=== PATIENT | male | born 1935 | race Caucasian/White ===

== ENCOUNTER 2020-12-29 09:12 | Inpatient (IN) | payer MEDICARE ==
[2020-12-29] MEDS ORDERED: HYDROmorphone 0.5 MG/0.5 ML SYRINGE IVP STA (09:40)
[2020-12-29] MEDS ORDERED: ONDANSETRON 4 MG/2 ML VIAL IVP STA (09:40)
--- NOTE | 2020-12-29 09:48 | ED ---
General Adult HPI - General Chief complaint: Shortness of Breath Stated complaint: SOB,ALtered mental status COVID + Time Seen by Provider: 12/29/20 09:15 Source: patient, EMS, RN notes reviewed Mode of arrival: EMS Limitations: altered mental status - History of Present Illness Initial comments: This an 85-year-old male presents emergency from via EMS from [facility] for shortness of breath. Patient reportedly is Covid positive.. Limited informati on is provided from jail staff. Patient reportedly was in a paternal: Recently. Patient found to be hypoxic the facility. Patient states it hurts all over states he did fall denies any head injury. Patient has no obvious new injuries. Patient denies any abdominal complaints no other pertinent information is provided from patient. - Related Data Home Medications Medication Instructions Recorded Confirmed Acetaminophen [Tylenol] 650 mg PO Q4H PRN 12/29/20 12/29/20 Albuterol Nebulized [Ventolin 2.5 mg INHALATION RT-Q8H PRN 12/29/20 12/29/20 Nebulized] Apixaban [Eliquis] 2.5 mg PO BID 12/29/20 12/29/20 Ascorbic Acid [Vitamin C] 500 mg PO DAILY 12/29/20 12/29/20 Aspirin [Children's Aspirin] 81 mg PO DAILY 12/29/20 12/29/20 Benzocaine/Menthol [Cepacol Sore 1 lozenge BUCCAL DAILY PRN 12/29/20 12/29/20 Throat Lozenge] Cholecalciferol [Vitamin D3 (25 25 mcg PO DAILY 12/29/20 12/29/20 Mcg = 1000 Iu)] Docusate [Colace] 100 mg PO DAILY PRN 12/29/20 12/29/20 Fluticasone Furoate [Arnuity 1 puff INHALATION RT-DAILY 12/29/20 12/29/20 Ellipta] Fluticasone Nasal [place] [Flonase 1 spray EA NOSTRIL DAILY 12/29/20 12/29/20 Nasal [place]] Fluticasone Propionate [Flovent 2 puff INHALATION RT-BID 12/29/20 12/29/20 Hfa 220 mcg] HYDROcodone/APAP 5-325MG [[place] 1 tab PO Q6H PRN 12/29/20 12/29/20 5-325] Insulin Aspart See Protocol SQ ACHS 12/29/20 12/29/20 Insulin Detemir [Levemir Flextouch] 10 units SQ DAILY 12/29/20 12/29/20 Metoprolol Tartrate [Lopressor] 25 mg PO BID 12/29/20 12/29/20 Omeprazole 20 mg PO DAILY 12/29/20 12/29/20 Tamsulosin HCl [Flomax] 0.4 mg PO HS 12/29/20 12/29/20 Tiotropium 2.5 Mcg/Puff [Spiriva 2 puff INHALATION RT-DAILY 12/29/20 12/29/20 Respimat 2.5 Mcg] polyethylene glycoL 3350 [Miralax] 17 gm PO DAILY PRN 12/29/20 12/29/20 predniSONE [Deltasone] 20 mg PO DAILY 12/29/20 12/29/20 traMADol HCL 50 mg PO BID PRN 12/29/20 12/29/20 traZODone HCL 100 mg PO HS 12/29/20 12/29/20 Allergies Allergy/AdvReac Type Severity Reaction Status Date / Time rosiglitazone [From [facility]] Allergy Unknown Verified 12/29/20 10:59 Review of Systems ROS Statement: Those systems with pertinent positive or pertinent negative responses have been documented in the HPI. ROS Other: All systems not noted in ROS Statement are negative. Past Medical History Past Medical History: Atrial Fibrillation, Hypertension History of Any Multi-Drug Resistant Organisms: Unobtainable Past Surgical History: Unable to Obtain Past Psychological History: Unable to Obtain Smoking Status: Unknown if ever smoked Past Alcohol Use History: Unable to Obtain Past Drug Use History: Unable to Obtain General Exam Limitations: altered mental status General appearance: alert, in no apparent distress Head exam: Present: atraumatic, normocephalic, normal inspection Eye exam: Present: normal appearance, PERRL, EOMI. Absent: scleral icterus, conjunctival injection, periorbital swelling Neck exam: Present: normal inspection. Absent: tenderness, meningismus, ly mphadenopathy Respiratory exam: Present: wheezes, decreased breath sounds. Absent: normal lung sounds bilaterally, respiratory distress, rales, rhonchi, stridor Cardiovascular Exam: Present: normal rhythm, tachycardia, normal heart sounds. Absent: systolic murmur, diastolic murmur, rubs, gallop, clicks GI/Abdominal exam: Present: soft, normal bowel sounds. Absent: distended, tenderness, guarding, rebound, rigid Neurological exam: Present: alert. Absent: oriented X3 Skin exam: Present: warm, dry, intact, normal color. Absent: rash Course Vital Signs 12/29/20 12/29/20 12/29/20 09:16 10:03 11:22 Temperature 98.2 F Pulse Rate 103 H 125 H 111 H Respiratory 26 H 25 H 22 Rate Blood Pressure 99/76 154/87 100/83 O2 Sat by Pulse 93 L 94 L 95 Oximetry 12/29/20 12:21 Temperature Pulse Rate 92 Respiratory 20 Rate Blood Pressure 160/86 O2 Sat by Pulse 95 Oximetry Medical Decision Making - Medical Decision Making 85-year-old male presented from for increasing confusion, hypoxia, not feeling well.nurse contacts family stated that he just recently was discharged from [facility] patient's positive or coded. Patient does show moderate respiratory distress, hypoxia. Patient does have what appears to be acute kidney injury, elevated troponin but has no current chest pain. Patient is on Eliquis will be continued on Eliquis. CT brain and C-spine unremarkable x-rays show evidence of pneumonia. Ur is no clear evidence of infection for patient's lactic acidosis. - Lab Data Result diagrams: 12/29/20 09:50 12/29/20 10:02 Lab Results 12/29/20 12/29/20 12/29/20 Range/Units 09:50 10:02 10:02 WBC 16.8 H (3.8-10.6) k/uL RBC 4.92 (4.30-5.90) m/uL Hgb 13.7 (13.0-17.5) gm/dL Hct 40.7 (39.0-53.0) % MCV 82.7 (80.0-100.0) fL MCH 27.8 (25.0-35.0) pg MCHC 33.6 (31.0-37.0) g/dL RDW 14.9 (11.5-15.5) % Plt Count 261 (150-450) k/uL MPV 8.3 Neutrophils % 90 % Lymphocytes % 2 % Monocytes % 5 % Eosinophils % 2 % Basophils % 0 % Neutrophils # 15.1 H (1.3-7.7) k/uL Lymphocytes # 0.4 L (1.0-4.8) k/uL Monocytes # 0.8 (0-1.0) k/uL Eosinophils # 0.4 (0-0.7) k/uL Basophils # 0.1 (0-0.2) k/uL Sodium 137 (137-145) mmol/L Potassium 4.8 (3.5-5.1) mmol/L Chloride 106 (98-107) mmol/L Carbon Dioxide 19 L (22-30) mmol/L Anion Gap 12 mmol/L BUN 42 H (9-20) mg/dL Creatinine 1.80 H (0.66-1.25) mg/dL Est GFR (CKD-EPI)AfAm 39 (>60 ml/min/1.73 sqM) Est GFR (CKD-EPI)NonAf 34 (>60 ml/min/1.73 sqM) Glucose 249 H (74-99) mg/dL Lactic Ac Sepsis Rflx Plasma Lactic Acid Louis 5.2 H* (0.7-2.0) mmol/L Calcium 9.1 (8.4-10.2) mg/dL Magnesium 1.9 (1.6-2.3) mg/dL Total Bilirubin 1.0 (0.2-1.3) mg/dL AST 101 H (17-59) U/L ALT 65 H (4-49) U/L Alkaline Phosphatase 173 H (38-126) U/L Troponin I (0.000-0.034) ng/mL C-Reactive Protein 44.3 H (<10.0) mg/L Total Protein 6.8 (6.3-8.2) g/dL Albumin 3.3 L (3.5-5.0) g/dL Lipase 73 (23-300) U/L Urine Color Urine Appearance (Clear) Urine pH (5.0-8.0) Ur Specific [place] (1.001-1.035) Urine Protein (Negative) Urine Glucose (UA) (Negative) Urine Ketones (Negative) Urine Blood (Negative) Urine Nitrite (Negative) Urine Bilirubin (Negative) Urine Urobilinogen (<2.0) mg/dL Ur Leukocyte Esterase (Negative) Urine RBC (0-5) /hpf Urine WBC (0-5) /hpf Urine WBC Clumps (None) /hpf Amorphous Sediment (None) /hpf Hyaline Casts (0-2) /lpf Granular Casts (0) /lpf Urine Mucus (None) /hpf 12/29/20 12/29/20 12/29/20 Range/Units 10:02 10:28 11:39 WBC (3.8-10.6) k/uL RBC (4.30-5.90) m/uL Hgb (13.0-17.5) gm/dL Hct (39.0-53.0) % MCV (80.0-100.0) fL MCH (25.0-35.0) pg MCHC (31.0-37.0) g/dL RDW (11.5-15.5) % Plt Count (150-450) k/uL MPV Neutrophils % % Lymphocytes % % Monocytes % % Eosinophils % % Basophils % % Neutrophils # (1.3-7.7) k/uL Lymphocytes # (1.0-4.8) k/uL Monocytes # (0-1.0) k/uL Eosinophils # (0-0.7) k/uL Basophils # (0-0.2) k/uL Sodium (137-145) mmol/L Potassium (3.5-5.1) mmol/L Chloride (98-107) mmol/L Carbon Dioxide (22-30) mmol/L Anion Gap mmol/L BUN (9-20) mg/dL Creatinine (0.66-1.25) mg/dL Est GFR (CKD-EPI)AfAm (>60 ml/min/1.73 sqM) Est GFR (CKD-EPI)NonAf (>60 ml/min/1.73 sqM) Glucose (74-99) mg/dL Lactic Ac Sepsis Rflx Y Plasma Lactic Acid Louis (0.7-2.0) mmol/L Calcium (8.4-10.2) mg/dL Magnesium (1.6-2.3) mg/dL Total Bilirubin (0.2-1.3) mg/dL AST (17-59) U/L ALT (4-49) U/L Alkaline Phosphatase (38-126) U/L Troponin I 0.382 H* (0.000-0.034) ng/mL C-Reactive Protein (<10.0) mg/L Total Protein (6.3-8.2) g/dL Albumin (3.5-5.0) g/dL Lipase (23-300) U/L Urine Color Yellow Urine Appearance Cloudy (Clear) Urine pH 6.0 (5.0-8.0) Ur Specific [place] 1.016 (1.001-1.035) Urine Protein 3+ H (Negative) Urine Glucose (UA) 1+ H (Negative) Urine Ketones Negative (Negative) Urine Blood Moderate H (Negative) Urine Nitrite Negative (Negative) Urine Bilirubin Negative (Negative) Urine Urobilinogen <2.0 (<2.0) mg/dL Ur Leukocyte Esterase Trace H (Negative) Urine RBC <1 (0-5) /hpf Urine WBC 12 H (0-5) /hpf Urine WBC Clumps Few H (None) /hpf Amorphous Sediment Moderate H (None) /hpf Hyaline Casts 4 H (0-2) /lpf Granular Casts 3 (0) /lpf Urine Mucus Rare H (None) /hpf Disposition Clinical Impression: Pneumonia due to COVID-19 virus, Hypoxia, Elevated troponin, PAULO (acute kidney injury), Lactic acidosis Disposition: ADMITTED IP TO THIS [facility] Condition: Serious Referrals: None,Stated [REFERRING] - 1-2 days
[2020-12-29 10:06] LABS: Basophils # (A) 0.1 k/uL (0-0.2); Basophils % (A) 0 %; Eosinophils # (A) 0.4 k/uL (0-0.7); Eosinophils % (A) 2 %; HCT 40.7 % (39.0-53.0); HGB 13.7 gm/dL (13.0-17.5); Lymphocytes # (A) 0.4 k/uL (1.0-4.8); Lymphocytes % (A) 2 %; MCH 27.8 pg (25.0-35.0); MCHC 33.6 g/dL (31.0-37.0); MCV 82.7 fL (80.0-100.0); Mean Platelet Volume 8.3; Monocytes # (A) 0.8 k/uL (0-1.0); Monocytes % (A) 5 %; Neutrophils # (A) 15.1 k/uL (1.3-7.7); Neutrophils % (A) 90 %; Platelet Count 261 k/uL (150-450); RBC 4.92 m/uL (4.30-5.90); RDW 14.9 % (11.5-15.5); WBC 16.8 k/uL (3.8-10.6)
[2020-12-29 10:19] LABS: Albumin 3.3 g/dL (3.5-5.0); C Reactive Protein 44.3 mg/L (<10.0); Calcium 9.1 mg/dL (8.4-10.2); Magnesium 1.9 mg/dL (1.6-2.3); Potassium 4.8 mmol/L (3.5-5.1); Total Protein 6.8 g/dL (6.3-8.2)
[2020-12-29] MEDS ORDERED: SODIUM CHLORIDE 0.9% 1,000 ML IV ONE (10:36)
[2020-12-29] MEDS ORDERED: DILTIAZEM DRIP BOLUS FROM BAG 1 MG SOLN IV ONE (10:37)
--- NOTE | 2020-12-29 10:49 | XR ---
EXAMINATION TYPE: XR chest 1V DATE OF EXAM: 12/29/2020 COMPARISON: None HISTORY: Shortness of breath and fall TECHNIQUE: Single frontal view of the chest is obtained. FINDINGS: There are scattered partially consolidative opacities in both lungs particularly in the mi d and lower lung zones. There is no pneumothorax. There is no definite pleural effusion. The heart and pulmonary vasculature are normal. The osseous structures are grossly intact IMPRESSION: Acute airspace opacities bilaterally consistent with acute pulmonic process
--- NOTE | 2020-12-29 10:50 | XR ---
AP pelvis. HISTORY: Fall. COMPARISON: None. TECHNIQUE: Single AP view the pelvis is obtained. FINDINGS: There is no fracture or focal intraosseous abnormality. There is mild hip degeneration degeneration l ower lumbar spine. There are no suspicious calcifications within the soft tissues or graft impression : IMPRESSION: No acute trauma to the pelvis or hips.
--- NOTE | 2020-12-29 10:57 | CT ---
EXAMINATION TYPE: CT brain jolene colindres DATE OF EXAM: 12/29/2020 COMPARISON: None HISTORY: Altered mental status; COVID positive CT DLP: 2074.4 mGycm Automated exposure control for dose reduction was used. TECHNIQUE: CT scan of the head and cervical spine are performed without contrast. FINDINGS CT brain: The ventricles, basal cisterns and sulci over the convexities are moderately prominent consistent wit h generalized atrophy and consistent with the patient's age. There is no acute intra or extra-axial hemorrhage. There is no mass effect or shift of midline structures. The posterior fossa is grossly normal. The intraorbital contents appear normal and symmetric. Visualized paranasal sinuses are well aerated. The calvarium is intact. Cervical spine: Craniovertebral junction relationships and prevertebral soft tissues are normal. The cervical vertebr al segments are normal in height and alignment and there is no fracture or subluxation. The there is diffuse anterior hyperostosis throughout the cervical region. There is moderate degenerative disc disease with moderate disc space narrowing throughout the cervica l region. There is degeneration of the facet joints as well. There is probable significant bony encroachment of the cervical canal at the C4-5 level. IMPRESSION: 1. Generalized atrophy within the brain consistent with the patient's age. No acute bleed or mass eff ect. 2. 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 Th ere is no acute trauma in the cervical spine.
[2020-12-29] MEDS: DILTIAZEM 125 MG in SODIUM CHLORIDE 0.9% 100 ML IV SCH (11:20)
[2020-12-29 12:15] LABS: Amorphous Sediment,Urine Moderate /hpf; Appearance,Urine Cloudy (Clear); Bilirubin,Urine Negative (Negative); Blood,Urine Moderate (Negative); Color,Urine Yellow; Glucose,Urine (UA) 1+ (Negative); Granular Casts,Urine 3 /lpf (0); Hyaline Casts,Urine 4 /lpf (0-2); Ketones,Urine Negative (Negative); Leukocyte Esterase,Urine Trace (Negative); Mucus,Urine Rare /hpf; Nitrite,Urine Negative (Negative); Protein,Urine 3+ (Negative); RBC,Urine <1 /hpf (0-5); Specific Gravity,Urine 1.016 (1.001-1.035); Urobilinogen,Urine <2.0 mg/dL (<2.0); WBC,Urine 12 /hpf (0-5)
[2020-12-29] MEDS ORDERED: LORazepam 2 MG/ML INJ IV STA (12:19)
[2020-12-29] MEDS: SODIUM CHLORIDE 0.9% 1,000 ML IV SCH (12:21)
[2020-12-29] MEDS ORDERED: ONDANSETRON 4 MG/2 ML VIAL IVP PRN (12:35)
[2020-12-29] MEDS ORDERED: ACETAMINOPHEN TAB 325 MG TAB PO PRN (12:35)
[2020-12-29] MEDS ORDERED: NALOXONE 0.4 MG/ML 1 ML VIAL IV PRN (12:35)
[2020-12-29] MEDS ORDERED: MORPHINE SULFATE 4 MG/ML SYRINGE IVP PRN (13:52)
[2020-12-29] MEDS ORDERED: HYDROcodone/APAP 5-325MG 1 EACH TAB PO PRN (13:53)
[2020-12-29] MEDS ORDERED: LORazepam 2 MG/ML INJ IV PRN (13:54)
[2020-12-29] MEDS ORDERED: HEPARIN SODIUM 1,000 UN/ML (10ML VL) IV PRN (14:44)
[2020-12-29] MEDS: HEPARIN SOD,PORK IN 0.45% NACL 25,000 UNIT in 0.45% NACL 1 250ML.BAG IV SCH (15:11)
[2020-12-29] MEDS ORDERED: HALOPERIDOL LACTATE 5 MG/ML 1 ML VIAL IVP PRN (17:09)
[2020-12-29] MEDS ORDERED: dexAMETHasone 2 MG TAB PO SCH (17:15)
--- NOTE | 2020-12-29 17:19 | P.HPIM ---
History of Present Illness 85-year-old the pleasant male was sent in from a large because of shortness of breath found to have. patient is unable to provide much of history to me patient is presently on 4 L of oxygen. Patient the mental status at baseline is much better than what he is now patient is oriented 1 but didn't provide me any history at all patient apparently told the ER physician news production assistant that the he has body aches all over. Patient is found to have covid 19. Patient also has elevated troponins were elevated with the some EKG changes in the inferior leads and patient appears to be in atrial fibrillation as well patient was started on IV heparin, Cardizem, cardiology was consulted. Patient initial troponin was 0.3 to second one is 1.24 patient present creatinine is 1.80 patient does have leukocytosis. I do not have any baseline creatinine available. Patient had multiple imaging studies unsure whether he had a fall patient had a cervical and head CT which showed significant atrophy of the brain along with degenerative changes and cervical stenosis at C4-C5 level without any acute trauma Review of Systems Unable to obtain Past Medical History Past Medical History: Atrial Fibrillation, Hypertension Additional Past Medical History / Comment(s): liver cancer years ago. History of Any Multi-Drug Resistant Organisms: Unobtainable Past Surgical History: Unable to Obtain Additional Past Surgical History / Comment(s): portion of liver removed Past Psychological History: Unable to Obtain Smoking Status: Unknown if ever smoked Past Alcohol Use History: Unable to Obtain Past Drug Use History: Unable to Obtain Medications and Allergies Home Medications Medication Instructions Recorded Confirmed Type Acetaminophen [Tylenol] 650 mg PO Q4H PRN 12/29/20 12/29/20 History Albuterol Nebulized [Ventolin 2.5 mg INHALATION RT-Q8H PRN 12/29/20 12/29/20 History Nebulized] Apixaban [Eliquis] 2.5 mg PO BID 12/29/20 12/29/20 History Ascorbic Acid [Vitamin C] 500 mg PO DAILY 12/29/20 12/29/20 History Aspirin [Children's Aspirin] 81 mg PO DAILY 12/29/20 12/29/20 History Benzocaine/Menthol [Cepacol Sore 1 lozenge BUCCAL DAILY PRN 12/29/20 12/29/20 History Throat Lozenge] Cholecalciferol [Vitamin D3 (25 25 mcg PO DAILY 12/29/20 12/29/20 History Mcg = 1000 Iu)] Docusate [Colace] 100 mg PO DAILY PRN 12/29/20 12/29/20 History Fluticasone Furoate [Arnuity 1 puff INHALATION RT-DAILY 12/29/20 12/29/20 History Ellipta] Fluticasone Nasal [place] [Flonase 1 spray EA NOSTRIL DAILY 12/29/20 12/29/20 History Nasal [place]] Fluticasone Propionate [Flovent 2 puff INHALATION RT-BID 12/29/20 12/29/20 History Hfa 220 mcg] HYDROcodone/APAP 5-325MG [[place] 1 tab PO Q6H PRN 12/29/20 12/29/20 History 5-325] Insulin Aspart See Protocol SQ ACHS 12/29/20 12/29/20 History Insulin Detemir [Levemir Flextouch] 10 units SQ DAILY 12/29/20 12/29/20 History Metoprolol Tartrate [Lopressor] 25 mg PO BID 12/29/20 12/29/20 History Omeprazole 20 mg PO DAILY 12/29/20 12/29/20 History Tamsulosin HCl [Flomax] 0.4 mg PO HS 12/29/20 12/29/20 History Tiotropium 2.5 Mcg/Puff [Spiriva 2 puff INHALATION RT-DAILY 12/29/20 12/29/20 History Respimat 2.5 Mcg] polyethylene glycoL 3350 [Miralax] 17 gm PO DAILY PRN 12/29/20 12/29/20 History predniSONE [Deltasone] 20 mg PO DAILY 12/29/20 12/29/20 History traMADol HCL 50 mg PO BID PRN 12/29/20 12/29/20 History traZODone HCL 100 mg PO HS 12/29/20 12/29/20 History Allergies Allergy/AdvReac Type Severity Reaction Status Date / Time rosiglitazone [From [facility]] Allergy Unknown Verified 12/29/20 10:59 Physical Exam Vitals: Vital Signs Temp Pulse Resp BP Pulse Ox 12/29/20 16:54 93 22 147/76 94 L 12/29/20 15:00 87 12/29/20 13:28 102 H 24 143/60 93 L 12/29/20 13:08 96 12/29/20 12:21 92 20 160/86 95 12/29/20 11:22 111 H 22 100/83 95 12/29/20 10:03 125 H 25 H 154/87 94 L 12/29/20 09:16 98.2 F 103 H 26 H 99/76 93 L Intake and Output 12/29/20 12/29/20 12/29/20 06:59 14:59 22:59 Other: Weight 86.183 kg PHYSICAL EXAMINATION: GENERAL: The patient is drowsy in respiratory distress and able to provide much of the history, not in any acute distress. Well developed, well nourished. HEENT: Pupils are round and equally reacting to light. EOMI. No scleral icterus. No conjunctival pallor. Normocephalic, atraumatic. No pharyngeal erythema. No thyromegaly. CARDIOVASCULAR: S1 and S2 present. No murmurs, rubs, or gallops. PULMONARY: Diminished bilaterally limited exam as patient doesn't follow commands ABDOMEN: Soft, nontender, nondistended, normoactive bowel sounds. No palpable organomegaly. MUSCULOSKELETAL: No joint swelling or deformity. EXTREMITIES: No cyanosis, clubbing, or pedal edema. NEUROLOGICAL: Unable to assess SKIN: No rashes. Results CBC & Chem 7: 12/29/20 09:50 12/29/20 10:02 Labs: Abnormal Lab Results - Last 24 Hours (Table) 12/29/20 12/29/20 12/29/20 Range/Units 09:50 10:02 10:02 WBC 16.8 H (3.8-10.6) k/uL Neutrophils # 15.1 H (1.3-7.7) k/uL Lymphocytes # 0.4 L (1.0-4.8) k/uL Carbon Dioxide 19 L (22-30) mmol/L BUN 42 H (9-20) mg/dL Creatinine 1.80 H (0.66-1.25) mg/dL Glucose 249 H (74-99) mg/dL Plasma Lactic Acid Louis 5.2 H* (0.7-2.0) mmol/L AST 101 H (17-59) U/L ALT 65 H (4-49) U/L Alkaline Phosphatase 173 H (38-126) U/L Troponin I (0.000-0.034) ng/mL C-Reactive Protein 44.3 H (<10.0) mg/L Albumin 3.3 L (3.5-5.0) g/dL Urine Protein (Negative) Urine Glucose (UA) (Negative) Urine Blood (Negative) Ur Leukocyte Esterase (Negative) Urine WBC (0-5) /hpf Urine WBC Clumps (None) /hpf Amorphous Sediment (None) /hpf Hyaline Casts (0-2) /lpf Urine Mucus (None) /hpf 12/29/20 12/29/20 12/29/20 Range/Units 10:02 11:39 12:58 WBC (3.8-10.6) k/uL Neutrophils # (1.3-7.7) k/uL Lymphocytes # (1.0-4.8) k/uL Carbon Dioxide (22-30) mmol/L BUN (9-20) mg/dL Creatinine (0.66-1.25) mg/dL Glucose (74-99) mg/dL Plasma Lactic Acid Louis 3.6 H* (0.7-2.0) mmol/L AST (17-59) U/L ALT (4-49) U/L Alkaline Phosphatase (38-126) U/L Troponin I 0.382 H* (0.000-0.034) ng/mL C-Reactive Protein (<10.0) mg/L Albumin (3.5-5.0) g/dL Urine Protein 3+ H (Negative) Urine Glucose (UA) 1+ H (Negative) Urine Blood Moderate H (Negative) Ur Leukocyte Esterase Trace H (Negative) Urine WBC 12 H (0-5) /hpf Urine WBC Clumps Few H (None) /hpf Amorphous Sediment Moderate H (None) /hpf Hyaline Casts 4 H (0-2) /lpf Urine Mucus Rare H (None) /hpf 12/29/20 Range/Units 12:58 WBC (3.8-10.6) k/uL Neutrophils # (1.3-7.7) k/uL Lymphocytes # (1.0-4.8) k/uL Carbon Dioxide (22-30) mmol/L BUN (9-20) mg/dL Creatinine (0.66-1.25) mg/dL Glucose (74-99) mg/dL Plasma Lactic Acid Louis (0.7-2.0) mmol/L AST (17-59) U/L ALT (4-49) U/L Alkaline Phosphatase (38-126) U/L Troponin I 1.240 H* (0.000-0.034) ng/mL C-Reactive Protein (<10.0) mg/L Albumin (3.5-5.0) g/dL Urine Protein (Negative) Urine Glucose (UA) (Negative) Urine Blood (Negative) Ur Leukocyte Esterase (Negative) Urine WBC (0-5) /hpf Urine WBC Clumps (None) /hpf Amorphous Sediment (None) /hpf Hyaline Casts (0-2) /lpf Urine Mucus (None) /hpf Assessment and Plan Plan: -Acute hypoxic respiratory failure: Secondary to covid 19. Patient will be started on Decadron Nii multivitamins. Infectious disease will be consulted -Severe sepsis with lactic acidosis: Secondary to Covid 19 can you with IV fluids -Elevated troponins possibility of non-ST elevation myocardial infarction cannot be ruled out can be type II MS, cardiology was consulted n -Atrial fibrillation: Rapid ventricular rate secondary to hypoxemia, patient was started on Cardizem no previous echocardiogram is available will order an echo cardiac exam -Cervical degenerative disc disease -Hypertension -Possibility of vascular dementia mild to moderate -Toxic encephalopathy from sepsis -Acute renal failure: Prerenal azotemia or acute tubular necrosis secondary to sepsis. Anion gap metabolic acidosis secondary to lactic acidosis -DVT prophylaxis patient is already on IV heparin for atrial fibrillation and non-ST elevation MS
[2020-12-29] MEDS: ASCORBIC ACID 500 MG TAB PO SCH (19:47)
[2020-12-29] MEDS: ZINC SULFATE 220 MG CAP PO SCH (19:47)
[2020-12-29 20:19] LABS: Glucose,Whole Blood 330 mg/dL (75-99)
[2020-12-29 23:07] LABS: Glucose,Whole Blood 320 mg/dL (75-99)
[2020-12-29] MEDS: DEXAMETHASONE SOD PHOSPHATE 10 MG/ML 1 ML VIAL IV SCH (23:51)
[2020-12-30 05:05] LABS: Basophils % (A) 0 %; Eosinophils % (A) 0 %; HGB 12.4 gm/dL (13.0-17.5); Lymphocytes # (A) 0.3 k/uL (1.0-4.8); Lymphocytes % (A) 2 %; MCH 27.6 pg (25.0-35.0); MCHC 32.6 g/dL (31.0-37.0); MCV 84.9 fL (80.0-100.0); Mean Platelet Volume 8.9; Monocytes # (A) 0.6 k/uL (0-1.0); Monocytes % (A) 4 %; Neutrophils # (A) 13.5 k/uL (1.3-7.7); Neutrophils % (A) 94 %; Platelet Count 162 k/uL (150-450); RBC 4.47 m/uL (4.30-5.90); RDW 15.2 % (11.5-15.5); WBC 14.4 k/uL (3.8-10.6)
--- NOTE | 2020-12-30 05:17 | CONS ---
CONSULTATION DATE OF SERVICE: 12/29/2020 REASON FOR CONSULTATION: COVID-19 infection. HISTORY OF PRESENT ILLNESS: The patient is an 85-year-old male who was recently admitted at [facility] about a week ago. Apparently the patient was treated for COVID-19 infection and some heart rhythm abnormality as per the history provided mostly by the daughter and the nursing staff. It is not clear if the patient has received any specific treatment such as remdesivir while the patient was at [facility] for about a week. The patient was discharged to the [facility] last evening. Within less than 24 hours the patient has been sent to [facility] ER for evaluation of mental status changes, lethargy and weakness in this patient who has been complaining of pain all over and shortness of breath. No history of any vomiting or diarrhea. The patient on presentation to this facility was noticed to be afebrile and no fever. Subsequently he was hypoxic saturating 93 to 94% on 4 L nasal cannula. Patient did have a white count of 16.8 with a left shift, as well as lymphopenia. The patient did have a creatinine of 1.80. Did have elevated lactic acid as well as elevated troponin. Liver enzymes are elevated as well. CRP was 44. The patient did have a chest x-ray with acute interstitial opacities bilaterally consistent with acute pneumonia process. The patient has been admitted to the hospital for management of underlying WI, as well as COVID-19 infection. Infectious Disease was consulted for further management. At the time of evaluation, the patient has received a dose of Ativan, as well as morphine and is completely lethargic and unable to provide any history. REVIEW OF SYSTEMS: Positive points have been mentioned in HPI. Complete review could not be obtained because of underlying mental status. PAST MEDICAL HISTORY: Atrial fibrillation, hypertension, recent diagnosis of WI with COVID-19 infection. PAST SURGICAL HISTORY: Not available. SOCIAL HISTORY: No clear history of smoking, drinking or drug use. FAMILY HISTORY: No pertinent findings were noticed. ALLERGIES: LACTOSE. MEDICATIONS: The patient is currently on Tylenol, [place], vitamin C, Decadron, Diltiazem, heparin per protocol, NovoLog, Narcan, Zofran, IV fluid and zinc. PHYSICAL EXAMINATION: VITAL SIGNS: Blood pressure 147/76 with a pulse of 93, temperature 98.9, he is 94% on 4 L nasal cannula. GENERAL DESCRIPTION: Patient is an elderly male lying in bed in no distress. No tachypnea or accessory muscles of respiration use. HEENT: Examination shows no pallor or scleral icterus. Oral mucous membrane is dry. NECK: Trachea central, no thyromegaly. LUNGS: Unlabored breathing, decreased breath sounds at the bases. No wheeze or crackle. HEART: S1-S2, regular rate and rhythm. ABDOMEN: Soft, no tenderness. No guarding or rigidity. EXTREMITIES: No edema of the feet. SKIN: No rash or mass palpable. NEUROLOGICAL: Patient is currently lethargic and his orientation could not be determined. LABS: Hemoglobin is 13.72, white count 16.8. BUN of 42, creatinine 1.82. Elevated lactic acid as well as troponin. CRP 44.3. Procalcitonin was not done. Chest x-ray findings as mentioned above. DIAGNOSTIC IMPRESSION AND PLAN: Patient admitted to the hospital with weakness without any shortness of breath in this patient recently admitted at [facility] about a week ago for COVID-19. It is not very clear what treatment the patient has received at that facility. He was discharged to the [facility] and has been sent within 24 hour to this facility for evaluation of shortness of breath in this patient now with evidence of acute WI and pneumonia with abnormal x-ray, possibly related to fluid overload from the CHF or worsening of his COVID-19 pneumonia. PLAN: 1. We will try to obtain records from [facility] for the treatment the patient may have received at that facility. 2. For now, the patient is out of the therapeutic window for remdesivir per [facility] policy, as the patient already has symptoms for more than 7 days. 3. Patient's Decadron will be switched over to IV, as the patient is not taking anything by mouth which will continue along with heparin per facility protocol, zinc and ascorbic acid. 4. Droplet isolation and respiratory support. 5. We will follow on clinical condition and investigations to further adjust medication if needed. Thank you for this consultation. Will follow this patient along with you. MMODL / IJN: [id number] /
[2020-12-30 05:29] LABS: INR 1.2 (<1.2)
[2020-12-30 05:30] LABS: Prothrombin Time 12.3 sec (9.0-12.0)
[2020-12-30 06:15] LABS: Glucose,Whole Blood 303 mg/dL (75-99)
[2020-12-30] MEDS ORDERED: FUROSEMIDE 10 MG/ML 2 ML VIAL IV ONE (06:31)
[2020-12-30] MEDS: SODIUM CHLORIDE 0.9% 1,000 ML IV SCH ×5 (06:38→14:45)
[2020-12-30] MEDS: INSULIN ASPART (NovoLOG) 100 UNIT/ML VIAL SQ SCH ×3 (07:02→12:36)
[2020-12-30] MEDS: INSULIN DETEMIR (LEVEMIR) 100 UNIT/ML SYR SQ SCH ×2 (07:03→09:23)
[2020-12-30] MEDS: ASCORBIC ACID 500 MG TAB PO SCH (07:29)
[2020-12-30] MEDS: ZINC SULFATE 220 MG CAP PO SCH (08:03)
[2020-12-30] MEDS: DILTIAZEM 125 MG in SODIUM CHLORIDE 0.9% 100 ML IV SCH (08:17)
[2020-12-30] MEDS: DEXAMETHASONE SOD PHOSPHATE 10 MG/ML 1 ML VIAL IV SCH (08:18)
[2020-12-30] MEDS ORDERED: METOPROLOL TARTRATE 25 MG TAB PO SCH (09:00)
[2020-12-30] MEDS: METOPROLOL TARTRATE 5 MG/5 ML VIAL IVP SCH ×4 (09:23→14:45)
[2020-12-30 09:27] LABS: Ferritin 588.4 ng/mL (22.0-322.0)
[2020-12-30 10:04] LABS: Erythrocyte Sedimentation Rate 35 mm/hr (0-15)
--- NOTE | 2020-12-30 10:32 | P.CRDCN ---
History of Present Illness Consult date: 12/30/20 History of present illness: CHIEF COMPLAINT: Elevated troponins HISTORY OF PRESENT ILLNESS: This is a 85-year-old male with a past medical history significant for atrial fibrillation and hypertension. The patient does not follow with a mold preparer at [facility]. It is unknown if he sees a mold preparer elsewhere. We have been asked to see the patient in consultation for elevated troponins. Patient presented to the hospital from [facility] due to hypoxia and shortness of breath. The patient was apparently discharged recently from [facility]. The patient is positive for Covid 19. Patient was found to be in A. fib with RVR. Patient has a history of atrial fibrillation and was taking Eliquis prior to hospitalization. Patient was placed on IV heparin. He is currently on a Cardizem drip at 5 mg an hour. Patient's heart rate remains mildly uncontrolled this morning in the 110s. Blood pressure 136/75. He is on 10 L high flow nasal cannula. He is afebrile. According to the nurse, the patient is lethargic this morning and is unable to take any oral medications. DIAGNOSTICS: EKG reveals A. fib with RVR Chest xray acute airspace opacities bilaterally consistent with acute pulmonic process. Laboratory data: WBC 14.4. Hemoglobin 12.4. Platelet count 162. D-dimer 20.33. Sodium 137. Potassium 4.8. BUN 42. Creatinine 1.80. Lactic acid 2.9. Troponin 0.382. 1.240. 3.450. Current home cardiac medications include metoprolol tartrate 25 mg twice a day, aspirin 81 mg daily, and Eliquis 2.5 mg twice a day REVIEW OF SYSTEMS: Thorough review of systems not completed secondary to limited evaluation/examination and due to Covid19 PHYSICAL EXAM: Thorough physical exam not completed secondary to limited evaluation/examination and due to Covid19 ASSESSMENT: Covid 19 Acute hypoxic respiratory failure Acute encephalopathy Paroxysmal atrial fibrillation, on anticoagulation with Eliquis Non-STEMI Hypertension Acute kidney injury PLAN: Obtain 2-D echo to assess cardiac structure and function Continue telemetry monitoring Patient is unable to take oral medications this morning secondary to lethargy. We will continue IV heparin. Resume Eliquis when patient able to tolerate oral medications Continue IV Cardizem Begin metoprolol 5mg IVP q6 hours for optimal heart rate control. Resume oral metoprolol and patient able to tolerate oral medications. Will also add aspirin and Lipitor. No AMADOU/ARB secondary to PAULO. Monitor kidney function Further recommendations pending patient course Nurse practitioner note has been reviewed by physician. Signing provider agrees with the documented findings, assessment, and plan of care. Past Medical History Past Medical History: Atrial Fibrillation, Hypertension Additional Past Medical History / Comment(s): liver cancer years ago. History of Any Multi-Drug Resistant Organisms: Unobtainable Past Surgical History: Unable to Obtain Additional Past Surgical History / Comment(s): portion of liver removed Past Psychological History: Unable to Obtain Smoking Status: Unknown if ever smoked Past Alcohol Use History: Unable to Obtain Past Drug Use History: Unable to Obtain Medications and Allergies Home Medications Medication Instructions Recorded Confirmed Type Acetaminophen [Tylenol] 650 mg PO Q4H PRN 12/29/20 12/29/20 History Albuterol Nebulized [Ventolin 2.5 mg INHALATION RT-Q8H PRN 12/29/20 12/29/20 History Nebulized] Apixaban [Eliquis] 2.5 mg PO BID 12/29/20 12/29/20 History Ascorbic Acid [Vitamin C] 500 mg PO DAILY 12/29/20 12/29/20 History Aspirin [Children's Aspirin] 81 mg PO DAILY 12/29/20 12/29/20 History Benzocaine/Menthol [Cepacol Sore 1 lozenge BUCCAL DAILY PRN 12/29/20 12/29/20 History Throat Lozenge] Cholecalciferol [Vitamin D3 (25 25 mcg PO DAILY 12/29/20 12/29/20 History Mcg = 1000 Iu)] Docusate [Colace] 100 mg PO DAILY PRN 12/29/20 12/29/20 History Fluticasone Furoate [Arnuity 1 puff INHALATION RT-DAILY 12/29/20 12/29/20 History Ellipta] Fluticasone Nasal [place] [Flonase 1 spray EA NOSTRIL DAILY 12/29/20 12/29/20 History Nasal [place]uhler] Fluticasone Propionate [Flovent 2 puff INHALATION RT-BID 12/29/20 12/29/20 History Hfa 220 mcg] HYDROcodone/APAP 5-325MG [[place] 1 tab PO Q6H PRN 12/29/20 12/29/20 History 5-325] Insulin Aspart See Protocol SQ ACHS 12/29/20 12/29/20 History Insulin Detemir [Levemir Flextouch] 10 units SQ DAILY 12/29/20 12/29/20 History Metoprolol Tartrate [Lopressor] 25 mg PO BID 12/29/20 12/29/20 History Omeprazole 20 mg PO DAILY 12/29/20 12/29/20 History Tamsulosin HCl [Flomax] 0.4 mg PO HS 12/29/20 12/29/20 History Tiotropium 2.5 Mcg/Puff [Spiriva 2 puff INHALATION RT-DAILY 12/29/20 12/29/20 History Respimat 2.5 Mcg] polyethylene glycoL 3350 [Miralax] 17 gm PO DAILY PRN 12/29/20 12/29/20 History predniSONE [Deltasone] 20 mg PO DAILY 12/29/20 12/29/20 History traMADol HCL 50 mg PO BID PRN 12/29/20 12/29/20 History traZODone HCL 100 mg PO HS 12/29/20 12/29/20 History Allergies Allergy/AdvReac Type Severity Reaction Status Date / Time rosiglitazone [From Avandia] Allergy Unknown Verified 12/29/20 10:59 Physical Exam Vitals: Vital Signs Temp Pulse Pulse Resp BP BP Pulse Ox 12/30/20 08:00 97.9 F 111 H 20 136/75 93 L 12/30/20 04:30 98.7 F 87 28 H 149/77 92 L 12/30/20 00:00 91 L 12/29/20 23:00 98.2 F 85 26 H 148/70 94 L 12/29/20 21:00 92 L 12/29/20 20:59 32 H 12/29/20 20:50 90 L 12/29/20 19:55 98.6 F 89 32 H 155/68 86 L 12/29/20 17:16 97.9 F 12/29/20 16:54 93 22 147/76 94 L 12/29/20 15:00 87 12/29/20 13:28 102 H 24 143/60 93 L 12/29/20 13:08 96 12/29/20 12:21 92 20 160/86 95 12/29/20 11:22 111 H 22 100/83 95 Intake and Output 04/03/21 04/04/21 04/04/21 22:59 06:59 14:59 Intake Total 81.642 104.75 Balance 81.642 104.75 Intake: Intake, IV Titration 81.642 104.75 Amount Diltiazem 125 mg In 104.75 Sodium Chloride 0.9% 100 ml @ 5 MG/HR 5 mls/hr IV .Q24H [facility] Rx#:[id number] Heparin Sod,Pork in 0.45% 81.642 NaCl 25,000 unit In 0.45 % NaCl 1 250ml.bag @ 11.6 UNITS/KG/HR 9.997 mls/hr IV .Q24H [facility] Rx#: [id number] Other: Voiding Method Diaper Diaper Diaper # Voids 3 Weight 106 kg Results 12/30/20 04:33 12/29/20 10:02 Cardiac Enzymes 12/29/20 12/29/20 12/29/20 Range/Units 10:02 10:02 12:58 AST 101 H (17-59) U/L Lactate Dehydrogenase (313-618) U/L Troponin I 0.382 H* 1.240 H* (0.000-0.034) ng/mL 12/29/20 12/30/20 Range/Units 16:12 04:33 AST (17-59) U/L Lactate Dehydrogenase 1594 H (313-618) U/L Troponin I 3.450 H* (0.000-0.034) ng/mL Coagulation 12/29/20 12/30/20 12/30/20 Range/Units 21:53 04:33 07:13 PT 12.3 H (9.0-12.0) sec APTT 28.3 58.1 H (22.0-30.0) sec CBC 12/30/20 Range/Units 04:33 WBC 14.4 H (3.8-10.6) k/uL RBC 4.47 (4.30-5.90) m/uL Hgb 12.4 L (13.0-17.5) gm/dL Hct 38.0 L (39.0-53.0) % Plt Count 162 (150-450) k/uL Comprehensive Metabolic Panel 12/29/20 Range/Units 10:02 Sodium 137 (137-145) mmol/L Potassium 4.8 (3.5-5.1) mmol/L Chloride 106 (98-107) mmol/L Carbon Dioxide 19 L (22-30) mmol/L BUN 42 H (9-20) mg/dL Creatinine 1.80 H (0.66-1.25) mg/dL Glucose 249 H (74-99) mg/dL Calcium 9.1 (8.4-10.2) mg/dL AST 101 H (17-59) U/L ALT 65 H (4-49) U/L Alkaline Phosphatase 173 H (38-126) U/L Total Protein 6.8 (6.3-8.2) g/dL Albumin 3.3 L (3.5-5.0) g/dL Current Medications Generic Name Dose Route Start Last Admin Trade Name Freq PRN Reason Stop Dose Admin Acetaminophen 650 mg 12/29/20 12:35 Acetaminophen Tab 325 Mg Tab PO Q6HR PRN Mild Pain or Fever > 100.5 Hydrocodone Bitart/Acetaminophen 1 each 12/29/20 13:53 Hydrocodone/Apap 5-325mg 1 Each Tab PO Q4HR PRN Pain Ascorbic Acid 500 mg 12/29/20 21:00 12/30/20 07:29 Ascorbic Acid 500 Mg Tab PO Not Given BID [facility]AN Dexamethasone Sodium Phosphate 6 mg 12/29/20 22:45 12/30/20 08:18 Dexamethasone Sod Phosphate 10 Mg/Ml 1 Ml Vial IV 6 mg DAILY [facility]ARAN Administration Haloperidol Lactate 0.5 mg 12/29/20 17:09 Haloperidol Lactate 5 Mg/Ml 1 Ml Vial IVP Q8HR PRN Agitation or Acute Psychosis Heparin Sodium (Porcine) 0 unit 12/29/20 14:44 12/29/20 23:39 Heparin Sodium 1,000 Un/Ml (10ml Vl) IV 4,000 unit PER PROTOCOL PRN Administration Low PTT Protocol Diltiazem HCl 125 mg/ Sodium 125 mls @ 5 mls/hr 12/29/20 10:45 12/30/20 08:17 Chloride IV 5 mg/hr .Q24H [facility] 5 mls/hr Administration 5 MG/HR Sodium Chloride 1,000 mls @ 130 mls/hr 12/29/20 11:45 12/30/20 09:24 Saline 0.9% IV 130 mls/hr .[id number] [facility] Administration Heparin Sodium/Sodium Chloride 250 mls @ 9.997 mls/hr 12/29/20 14:45 12/29/20 23:21 25,000 unit/ Sodium Chloride IV 14.6 units/kg/hr .Q24H [facility] 12.583 mls/hr Titration Protocol 11.6 UNITS/KG/HR Sodium Chloride 1,000 mls @ 75 mls/hr 12/30/20 02:15 12/30/20 07:03 Saline 0.9% IV 75 mls/hr .[id number] [facility] Administration Insulin Aspart 0 unit 12/30/20 00:00 12/30/20 07:02 Insulin Aspart (Novolog) 100 Unit/Ml Vial SQ 8 unit ACHS [facility]ARAN Administration Protocol Insulin Detemir 10 unit 12/30/20 07:00 12/30/20 09:23 Insulin Detemir (Levemir) 100 Unit/Ml Syr SQ 10 unit DAILY [facility]ARAN Administration Metoprolol Tartrate 5 mg 12/30/20 09:30 12/30/20 09:32 Metoprolol Tartrate 5 Mg/5 Ml Vial IVP Not Given 1530,[id number] [facility] Naloxone HCl 0.2 mg 12/29/20 12:35 12/29/20 20:59 Naloxone 0.4 Mg/Ml 1 Ml Vial IV 0.2 mg Q2M PRN Administration Opioid Reversal Ondansetron HCl 4 mg 12/29/20 12:35 Ondansetron 4 Mg/2 Ml Vial IVP Q8HR PRN Nausea And Vomiting Zinc Sulfate 220 mg 12/29/20 17:15 12/30/20 08:03 Zinc Sulfate 220 Mg Cap PO Not Given DAILY TARAN Intake and Output 12/29/20 12/30/20 12/30/20 22:59 06:59 14:59 Intake Total 81.642 104.75 Balance 81.642 104.75 Intake: Intake, IV Titration 81.642 104.75 Amount Diltiazem 125 mg In 104.75 Sodium Chloride 0.9% 100 ml @ 5 MG/HR 5 mls/hr IV .Q24H [facility] Rx#:[id number] Heparin Sod,Pork in 0.45% 81.642 NaCl 25,000 unit In 0.45 % NaCl 1 250ml.bag @ 11.6 UNITS/KG/HR 9.997 mls/hr IV .Q24H [facility] Rx#: [id number] Other: Voiding Method Diaper Diaper Diaper # Voids 3 Weight 106 kg 12/30/20 04:33 12/29/20 10:02
[2020-12-30 12:31] LABS: Glucose,Whole Blood 237 mg/dL (75-99)
[2020-12-30] MEDS ORDERED: levETIRAcetam IV 500 MG in SODIUM CHLORIDE 0.9% 100 ML IVPB SCH (12:45)
[2020-12-30] MEDS ORDERED: LORazepam 2 MG/ML INJ IV STA (12:55)
--- NOTE | 2020-12-30 13:10 | P.CNNES ---
History of Present Illness Consult date: 12/30/20 Requesting physician: Teresa Michel Reason for Consult: altered mental status History of Present Illness: This is an 85-year-old gentleman with medical history of atrial fibrillation, hypertension that present to the emergency department on 12/29/2020 for shortness of breath. He was sent from [facility]. He was obtained from patient's nurse as well as medical record since patient unable to provide history. Apparently the patient was found to be hypoxic at the nursing facility. Per the ED note the patient was having the generalized pain but denies any head injury. Per the patient nurse it seems that the patient had a syncopal episode about a week ago and was sent to [facility] unsure what was the workup. Then he was at [facility] in the area he was confused was found to be hypoxic as a result he was sent to the emergency department. The patient was found to have positive Covid 19. Per the patient nurse the patient would have episodes where he'll grind his teeth and during these episodes he has hypoxic episodes episodes last about 10-15 seconds. Some of the workup in the hospital consisted of: Initial vital signs: Blood pressure of 99/76, heart rate 103, respiratory of 26, temperature of 98.2 Fahrenheit oral pulse ox 93 L on 4 L of nasal cannula. This the patient has been in the hospital he required 10 L of nasal cannula CT of the head is reported as generalized atrophy within the brain consistent with patient's age. No acute bleed or mass effect. 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 There is no acute trauma in the cervical spine. Chest x-ray was reported as acute airspace opacities bilaterally consistent with acute pulmonary process. On initial presentation the patient white blood cells 16.8 and the repeated 14.4. Initial serum glucose is 249 which is elevated at. The sodium is 137 which is normal the BUN is 42 and a creatinine is 1.80 AST of 101 and ALT of 65. CRP is 44.3 which is elevated On initial presentation the patient's troponin is 0.38 and he keeps on trending up and the last one is a 3.45 Initial coagulation is PT of 12.3, INR 1.2, PTT is 28.3 as a result of the elevated troponin the cardiology was consulted and the place and was placed on heparin drip currently the patient the last PTT is 58.1 Afterwards was able to get a hold of the patient's son (Parish via phone). Spoke with the patient's son as well as [id number]. Patient patient baseline mentation is alert oriented 3 . Patient was last spoken to was this past Thursday12/28/2020) during the evening and at her the [id number] he sounded well and the he had no complaints. She stated that he moves all upper and lower extremity the. He doesn't have any focal deficits to the knowledge. Review of Systems Review of system is limited and per positive and negative as per HPI Past Medical History Past Medical History: Atrial Fibrillation, Hypertension Additional Past Medical History / Comment(s): liver cancer years ago. History of Any Multi-Drug Resistant Organisms: Unobtainable Past Surgical History: Unable to Obtain Additional Past Surgical History / Comment(s): portion of liver removed Past Psychological History: Unable to Obtain Smoking Status: Unknown if ever smoked Past Alcohol Use History: Unable to Obtain Past Drug Use History: Unable to Obtain Medications and Allergies Home Medications Medication Instructions Recorded Confirmed Type Acetaminophen [Tylenol] 650 mg PO Q4H PRN 12/29/20 12/29/20 History Albuterol Nebulized [Ventolin 2.5 mg INHALATION RT-Q8H PRN 12/29/20 12/29/20 History Nebulized] Apixaban [Eliquis] 2.5 mg PO BID 12/29/20 12/29/20 History Ascorbic Acid [Vitamin C] 500 mg PO DAILY 12/29/20 12/29/20 History Aspirin [Children's Aspirin] 81 mg PO DAILY 12/29/20 12/29/20 History Benzocaine/Menthol [Cepacol Sore 1 lozenge BUCCAL DAILY PRN 12/29/20 12/29/20 History Throat Lozenge] Cholecalciferol [Vitamin D3 (25 25 mcg PO DAILY 12/29/20 12/29/20 History Mcg = 1000 Iu)] Docusate [Colace] 100 mg PO DAILY PRN 12/29/20 12/29/20 History Fluticasone Furoate [Arnuity 1 puff INHALATION RT-DAILY 12/29/20 12/29/20 History Ellipta] Fluticasone Nasal [place] [Flonase 1 spray EA NOSTRIL DAILY 12/29/20 12/29/20 History Nasal [place]] Fluticasone Propionate [Flovent 2 puff INHALATION RT-BID 12/29/20 12/29/20 History Hfa 220 mcg] HYDROcodone/APAP 5-325MG [Iola 1 tab PO Q6H PRN 12/29/20 12/29/20 History 5-325] Insulin Aspart See Protocol SQ ACHS 12/29/20 12/29/20 History Insulin Detemir [Levemir Flextouch] 10 units SQ DAILY 12/29/20 12/29/20 History Metoprolol Tartrate [Lopressor] 25 mg PO BID 12/29/20 12/29/20 History Omeprazole 20 mg PO DAILY 12/29/20 12/29/20 History Tamsulosin HCl [Flomax] 0.4 mg PO HS 12/29/20 12/29/20 History Tiotropium 2.5 Mcg/Puff [Spiriva 2 puff INHALATION RT-DAILY 12/29/20 12/29/20 History Respimat 2.5 Mcg] polyethylene glycoL 3350 [Miralax] 17 gm PO DAILY PRN 12/29/20 12/29/20 History predniSONE [Deltasone] 20 mg PO DAILY 12/29/20 12/29/20 History traMADol HCL 50 mg PO BID PRN 12/29/20 12/29/20 History traZODone HCL 100 mg PO HS 12/29/20 12/29/20 History Allergies Allergy/AdvReac Type Severity Reaction Status Date / Time rosiglitazone [From [facility]] Allergy Unknown Verified 12/29/20 10:59 Physical Examination - Vital Signs Vital Signs: Vital Signs Temp Pulse Pulse Resp BP BP Pulse Ox 12/30/20 11:12 97.6 F 98 20 134/91 91 L 12/30/20 08:00 97.9 F 111 H 20 136/75 93 L 12/30/20 04:30 98.7 F 87 28 H 149/77 92 L 12/30/20 00:00 91 L 12/29/20 23:00 98.2 F 85 26 H 148/70 94 L 12/29/20 21:00 92 L 12/29/20 20:59 32 H 12/29/20 20:50 90 L 12/29/20 19:55 98.6 F 89 32 H 155/68 86 L 12/29/20 17:16 97.9 F 12/29/20 16:54 93 22 147/76 94 L 12/29/20 15:00 87 12/29/20 13:28 102 H 24 143/60 93 L 12/29/20 13:08 96 12/29/20 12:21 92 20 160/86 95 Intake and Output 12/29/20 12/30/20 12/30/20 22:59 06:59 14:59 Intake Total 81.642 846.35 Balance 81.642 846.35 Intake: IV 741.6 Diltiazem 125 mg In 40 Sodium Chloride 0.9% 100 ml @ 5 MG/HR 5 mls/hr IV .Q24H TARAN Rx#:[id number] Heparin Sod,Pork in 0.45% 96 NaCl 25,000 unit In 0.45 % NaCl 1 250ml.bag @ 11.6 UNITS/KG/HR 9.997 mls/hr IV .Q24H TARAN Rx#: [id number] Sodium Chloride 0.9% 1, 600 000 ml @ 75 mls/hr IV . [id number] TARAN Rx#:[id number] dexamethason 0.6 metoprolol titrate 5 Intake, IV Titration 81.642 104.75 Amount Diltiazem 125 mg In 104.75 Sodium Chloride 0.9% 100 ml @ 5 MG/HR 5 mls/hr IV .Q24H TARAN Rx#:[id number] Heparin Sod,Pork in 0.45% 81.642 NaCl 25,000 unit In 0.45 % NaCl 1 250ml.bag @ 11.6 UNITS/KG/HR 9.997 mls/hr IV .Q24H TARAN Rx#: [id number] Other: Voiding Method Diaper Diaper Diaper # Voids 3 Weight 106 kg GENERAL: The patient is lying in bed and seems in acute distress. CHEST: He is tachycardiac. No pitting edema of lower extremities. LUNG: Is tachypneic. Is not is labored breathing. Is on 10L nasal canuli. ABDOMEN/GI: Bowel sounds present in all 4 quadrants. No tenderness to palpation throughout. NEUROLOGICAL: Higher mental function: The patient is awake but no verbally responsive. Not following commands. Cranial nerves: The primary gaze at time is midline and at other times it is pointing dowward. The pupils are round, equal and reactive to light. al nettles are full to confrontation throughout. No facial weakness appreciated. Motor: Gait could not be assessed. The patient is not moving the right upper and lower extremity event with painful stimuli. But moving the left upper and lower extremity sponatenously. Normal tone and bulk. Cerebellum: Could not assess. Sensation: Could not assess light touch. Reflexes (right/left): 2+ throughout except ankles are 1+ bilaterally. Plantars are mute bilaterally. NIH Stroke Scale Score: Level of consciousness 0 LOC questions 2 LOC commands 2 Best gaze 2 Visual nettles 3 Facial palsy 0 Left motor arm 0 Right motor arm 4 Left motor leg 0 Right motor leg 4 Limb ataxia Unable to assess Sensory Unable to asses Best language 3 Dysarthria 2 Extinction and inattention 0 Total NIHSS score: 22 Results - Laboratory Findings CBC and BMP: 12/30/20 04:33 12/30/20 08:54 Abnormal Lab Findings: Abnormal Labs 12/29/20 12/29/20 12/29/20 09:50 10:02 10:02 WBC 16.8 H Hgb Hct Neutrophils # 15.1 H Lymphocytes # 0.4 L ESR PT INR APTT D-Dimer Carbon Dioxide 19 L BUN 42 H Creatinine 1.80 H Glucose 249 H POC Glucose (mg/dL) Plasma Lactic Acid Louis 5.2 H* Ferritin AST 101 H ALT 65 H Alkaline Phosphatase 173 H Lactate Dehydrogenase Troponin I C-Reactive Protein 44.3 H Albumin 3.3 L Urine Protein Urine Glucose (UA) Urine Blood Ur Leukocyte Esterase Urine WBC Urine WBC Clumps Amorphous Sediment Hyaline Casts Urine Mucus 12/29/20 12/29/20 12/29/20 10:02 11:39 12:58 WBC Hgb Hct Neutrophils # Lymphocytes # ESR PT INR APTT D-Dimer Carbon Dioxide BUN Creatinine Glucose POC Glucose (mg/dL) Plasma Lactic Acid Louis 3.6 H* Ferritin AST ALT Alkaline Phosphatase Lactate Dehydrogenase Troponin I 0.382 H* C-Reactive Protein Albumin Urine Protein 3+ H Urine Glucose (UA) 1+ H Urine Blood Moderate H Ur Leukocyte Esterase Trace H Urine WBC 12 H Urine WBC Clumps Few H Amorphous Sediment Moderate H Hyaline Casts 4 H Urine Mucus Rare H 12/29/20 12/29/20 12/29/20 12:58 16:12 16:12 WBC Hgb Hct Neutrophils # Lymphocytes # ESR PT INR APTT D-Dimer Carbon Dioxide BUN Creatinine Glucose POC Glucose (mg/dL) Plasma Lactic Acid Louis 3.1 H* Ferritin AST ALT Alkaline Phosphatase Lactate Dehydrogenase Troponin I 1.240 H* 3.450 H* C-Reactive Protein Albumin Urine Protein Urine Glucose (UA) Urine Blood Ur Leukocyte Esterase Urine WBC Urine WBC Clumps Amorphous Sediment Hyaline Casts Urine Mucus 12/29/20 12/29/20 12/29/20 20:18 21:53 23:06 WBC Hgb Hct Neutrophils # Lymphocytes # ESR PT INR APTT D-Dimer Carbon Dioxide BUN Creatinine Glucose POC Glucose (mg/dL) 330 H 320 H Plasma Lactic Acid Louis 2.9 H* Ferritin AST ALT Alkaline Phosphatase Lactate Dehydrogenase Troponin I C-Reactive Protein Albumin Urine Protein Urine Glucose (UA) Urine Blood Ur Leukocyte Esterase Urine WBC Urine WBC Clumps Amorphous Sediment Hyaline Casts Urine Mucus 12/30/20 12/30/20 12/30/20 01:09 04:33 04:33 WBC 14.4 H Hgb 12.4 L Hct 38.0 L Neutrophils # 13.5 H Lymphocytes # 0.3 L ESR 35 H PT 12.3 H INR 1.2 H APTT D-Dimer 20.33 H Carbon Dioxide BUN Creatinine Glucose POC Glucose (mg/dL) Plasma Lactic Acid Louis 2.7 H* Ferritin AST ALT Alkaline Phosphatase Lactate Dehydrogenase Troponin I C-Reactive Protein Albumin Urine Protein Urine Glucose (UA) Urine Blood Ur Leukocyte Esterase Urine WBC Urine WBC Clumps Amorphous Sediment Hyaline Casts Urine Mucus 12/30/20 12/30/20 12/30/20 04:33 04:33 06:14 WBC Hgb Hct Neutrophils # Lymphocytes # ESR PT INR APTT D-Dimer Carbon Dioxide BUN Creatinine Glucose POC Glucose (mg/dL) 303 H Plasma Lactic Acid Louis 2.2 H* Ferritin 588.4 H AST ALT Alkaline Phosphatase Lactate Dehydrogenase 1594 H Troponin I C-Reactive Protein Albumin Urine Protein Urine Glucose (UA) Urine Blood Ur Leukocyte Esterase Urine WBC Urine WBC Clumps Amorphous Sediment Hyaline Casts Urine Mucus 12/30/20 12/30/20 07:13 08:35 WBC Hgb Hct Neutrophils # Lymphocytes # ESR PT INR APTT 58.1 H D-Dimer Carbon Dioxide BUN Creatinine Glucose POC Glucose (mg/dL) Plasma Lactic Acid Louis 2.1 H* Ferritin AST ALT Alkaline Phosphatase Lactate Dehydrogenase Troponin I C-Reactive Protein Albumin Urine Protein Urine Glucose (UA) Urine Blood Ur Leukocyte Esterase Urine WBC Urine WBC Clumps Amorphous Sediment Hyaline Casts Urine Mucus Assessment and Plan Assessment: Right hemiplegia is likely due to acute ischemic stroke (unknown last normal. But per [id number], last normal between 12/28/20 night time). No IV tpa since outside [facility] and is on heparin drip. Etiology of stroke is likely cardioembolic Encephalopathy due to multifactorial: Acute hypoxia from COVID19 pneumonia, also component of metabolic encephalopathy with kidney insufficiency as well as elevated liver function test Acute hypoxic respiratory failure due to Covid 19 pneumonia Non-STEMI Proximal atrial fibrillation on anticoagulation with Eliquis Acute kidney injury Hypertension Plan: I ordered a stat CTA of the head and neck. I ordered a stat CT as well. Currently the patient is on heparin drip. Recommend holding it. Instead he can be on suppository aspirin 300 mg in the meantime. 2-D echo is ordered by the cardiology team and it's pending. Currently the patient is on Lipitor 40 mg daily. Consult PT/OT. SQL ETL DEVELOPER is already consulted. Recommend continuous cardiac monitoring Recommend Lipitor panel I ordered a routine EEG. I started the patient on prophylactic Keppra 500 mg IV twice a day since patient has episodes of gaze deviation looking downward and that episodes of grinding teeth. If the EEG does not show any seizure or epileptiform discharges then the recom mend the stopping the Keppra. Cardiology is on board. We'll defer the rest of the medical management to the primary team. Next The plan is discussed with the patient's son (Parish) and his [id number] via phone. They stated that they don't want any surgical/invasive intervention. I notified them that the patient's condition seems poor. Also the plan was discussed with the patient's nurse. Thank you for the consultation. UPDATE: CT of the head is reported as cerebral atrophy. There is evidence for acute infarct over the left occipital lobe. Upon reviewing the CT of the head and I do agree there is ischemic stroke over the left occipital felt she was more subacute acute subacute stroke and also I felt there is a acute subacute over bilateral cerebellar left more than the right but was hard since CT is not best for cerebellar study. Pending CT angiography of the head and neck report. Recommend holding heparin drip. And instead placing the patient on suppository aspirin 300 mg daily. I spoke with the primary team regarding the patient's findings. As stated above the patient prognosis seems poor. If the family decides for further workup and recommended MRI the brain as well as lipid panel. Dr. Olsen will take over neurology coverage starting tomorrow AM. Ilia Drummond M.D. Neuro-hospitalist Time with Patient: Greater than 30
[2020-12-30] MEDS: HEPARIN SOD,PORK IN 0.45% NACL 25,000 UNIT in 0.45% NACL 1 250ML.BAG IV SCH (13:52)
[2020-12-30 14:44] VITALS: BP 137/90; TEMP 98
[2020-12-30] MEDS ORDERED: FUROSEMIDE 10 MG/ML 4 ML VIAL IV STA (14:58)
[2020-12-30 15:01] LABS: Calcium 8.3 mg/dL (8.4-10.2); Potassium 5.4 mmol/L (3.5-5.1)
--- NOTE | 2020-12-30 15:01 | CT ---
CT scan of the brain. History weakness. Comparison yesterday. TECHNIQUE: Images obtained of the brain with no contrast. FINDINGS: There is cerebral cortical atrophy. There is no mass effect nor midline shift. There is no sign of in tracranial hemorrhage. There is 2 cm area of cortical hypodensity left occipital lobe suggestive of a cute infarct. This is a change compared to yesterday. The calvarium is intact. There is limited pneumatization of the mastoid sinuses. Sella turcica is normal. IMPRESSION: Cerebral atrophy. There is evidence for acute infarct left occipital lobe.
--- NOTE | 2020-12-30 15:09 | P.PN ---
Subjective 85-year-old the pleasant male was sent in from a large because of shortness of breath found to have. patient is unable to provide much of history to me patient is presently on 4 L of oxygen. Patient the mental status at baseline is much better than what he is now patient is oriented 1 but didn't provide me any history at all patient apparently told the ER physician safety assistant that the he has body aches all over. Patient is found to have covid 19. Patient also has elevated troponins were elevated with the some EKG changes in the inferior leads and patient appears to be in atrial fibrillation as well patient was started on IV heparin, Cardizem, cardiology was consulted. Patient initial troponin was 0.3 to second one is 1.24 patient present creatinine is 1.80 patient does have leukocytosis. I do not have any baseline creatinine available. Patient had multiple imaging studies unsure whether he had a fall patient had a cervical and head CT which showed significant atrophy of the brain along with degenerative changes and cervical stenosis at C4-C5 level without any acute trauma. 12/30/2020 Patient is presently in the leg is approximately appears to have pulmonary edema will order Lasix in spite of elevated lactic acid IV fluids will be discontinued will not repeat lactic acid level tomorrow morning. Patient has elevated tro ray cardiology evaluated the patient. Patient is awaiting further echocardiogram. No further intervention is being planned from cardiology perspective patient is on IV heparin his oral anti-correlation is on hold. Patient has creatinine of 1.8, went up from 1.24. Patient is flaccid on the left side which was noted by the nursing staff later in the day because of his inability to follow commands is almost impossible to do neuro exam on him. Neurology evaluated the patient they did a CT angios the head and neck results of which are pending brain CT results are pending as well. Patient is an 8 atrial fibrillation on Cardizem. Review of systems: Unable to obtain due to his clinical condition All inpatient medications were reviewed and appropriate changes in these medications as dictated in the interval history and assessment and plan. Objective - Vital Signs Vital signs: Vital Signs Temp 98 F 12/30/20 14:42 Pulse 98 12/30/20 11:12 Resp 22 12/30/20 14:42 BP 137/90 12/30/20 14:42 Pulse Ox 91 L 12/30/20 14:42 Intake & Output 12/29/20 12/30/20 12/30/20 18:59 06:59 18:59 Intake Total 81.642 1014.708 Balance 81.642 1014.708 Weight 86.183 kg 106 kg Intake: IV 741.6 Diltiazem 125 mg In 40 Sodium Chloride 0.9% 100 ml @ 5 MG/HR 5 mls/hr IV .Q24H [facility]AN Rx#:[id number] Heparin Sod,Pork in 0.45% 96 NaCl 25,000 unit In 0.45 % NaCl 1 250ml.bag @ 11.6 UNITS/KG/HR 9.997 mls/hr IV .Q24H TARAN Rx#: [id number] Sodium Chloride 0.9% 1, 600 000 ml @ 75 mls/hr IV . [id number] TARAN Rx#:[id number] dexamethason 0.6 metoprolol titrate 5 Intake, IV Titration 81.642 273.108 Amount Diltiazem 125 mg In 104.75 Sodium Chloride 0.9% 100 ml @ 5 MG/HR 5 mls/hr IV .Q24H [facility]ARAN Rx#:[id number] Heparin Sod,Pork in 0.45% 81.642 168.358 NaCl 25,000 unit In 0.45 % NaCl 1 250ml.bag @ 11.6 UNITS/KG/HR 9.997 mls/hr IV .Q24H TARAN Rx#: [id number] Other: Voiding Method Diaper Diaper # Voids 3 - Exam PHYSICAL EXAMINATION: GENERAL: The patient is drowsy in respiratory distress and able to provide much of the history, not in any acute distress. Well developed, well nourished. HEENT: Pupils are round and equally reacting to light. EOMI. No scleral icterus. No conjunctival pallor. Normocephalic, atraumatic. No pharyngeal erythema. No thyromegaly. CARDIOVASCULAR: S1 and S2 present. No murmurs, rubs, or gallops. PULMONARY: Diminished bilaterally limited exam as patient doesn't follow commands ABDOMEN: Soft, nontender, nondistended, normoactive bowel sounds. No palpable organomegaly. MUSCULOSKELETAL: No joint swelling or deformity. EXTREMITIES: No cyanosis, clubbing, or pedal edema. NEUROLOGICAL: Unable to assess SKIN: No rashes. - Labs CBC & Chem 7: 12/30/20 04:33 12/29/20 10:02 Labs: Abnormal Lab Results - Last 24 Hours (Table) 12/29/20 12/29/20 12/29/20 Range/Units 16:12 16:12 20:18 WBC (3.8-10.6) k/uL Hgb (13.0-17.5) gm/dL Hct (39.0-53.0) % Neutrophils # (1.3-7.7) k/uL Lymphocytes # (1.0-4.8) k/uL ESR (0-15) mm/hr PT (9.0-12.0) sec INR (<1.2) APTT (22.0-30.0) sec D-Dimer (<0.60) mg/L FEU POC Glucose (mg/dL) 330 H (75-99) mg/dL Plasma Lactic Acid Louis 3.1 H* (0.7-2.0) mmol/L Ferritin (22.0-322.0) ng/mL Lactate Dehydrogenase (313-618) U/L Troponin I 3.450 H* (0.000-0.034) ng/mL 12/29/20 12/29/20 12/30/20 Range/Units 21:53 23:06 01:09 WBC (3.8-10.6) k/uL Hgb (13.0-17.5) gm/dL Hct (39.0-53.0) % Neutrophils # (1.3-7.7) k/uL Lymphocytes # (1.0-4.8) k/uL ESR (0-15) mm/hr PT (9.0-12.0) sec INR (<1.2) APTT (22.0-30.0) sec D-Dimer (<0.60) mg/L FEU POC Glucose (mg/dL) 320 H (75-99) mg/dL Plasma Lactic Acid Louis 2.9 H* 2.7 H* (0.7-2.0) mmol/L Ferritin (22.0-322.0) ng/mL Lactate Dehydrogenase (313-618) U/L Troponin I (0.000-0.034) ng/mL 12/30/20 12/30/20 12/30/20 Range/Units 04:33 04:33 04:33 WBC 14.4 H (3.8-10.6) k/uL Hgb 12.4 L (13.0-17.5) gm/dL Hct 38.0 L (39.0-53.0) % Neutrophils # 13.5 H (1.3-7.7) k/uL Lymphocytes # 0.3 L (1.0-4.8) k/uL ESR 35 H (0-15) mm/hr PT 12.3 H (9.0-12.0) sec INR 1.2 H (<1.2) APTT (22.0-30.0) sec D-Dimer 20.33 H (<0.60) mg/L FEU POC Glucose (mg/dL) (75-99) mg/dL Plasma Lactic Acid Louis (0.7-2.0) mmol/L Ferritin 588.4 H (22.0-322.0) ng/mL Lactate Dehydrogenase 1594 H (313-618) U/L Troponin I (0.000-0.034) ng/mL 12/30/20 12/30/20 12/30/20 Range/Units 04:33 06:14 07:13 WBC (3.8-10.6) k/uL Hgb (13.0-17.5) gm/dL Hct (39.0-53.0) % Neutrophils # (1.3-7.7) k/uL Lymphocytes # (1.0-4.8) k/uL ESR (0-15) mm/hr PT (9.0-12.0) sec INR (<1.2) APTT 58.1 H (22.0-30.0) sec D-Dimer (<0.60) mg/L FEU POC Glucose (mg/dL) 303 H (75-99) mg/dL Plasma Lactic Acid Louis 2.2 H* (0.7-2.0) mmol/L Ferritin (22.0-322.0) ng/mL Lactate Dehydrogenase (313-618) U/L Troponin I (0.000-0.034) ng/mL 12/30/20 12/30/20 Range/Units 08:35 11:59 WBC (3.8-10.6) k/uL Hgb (13.0-17.5) gm/dL Hct (39.0-53.0) % Neutrophils # (1.3-7.7) k/uL Lymphocytes # (1.0-4.8) k/uL ESR (0-15) mm/hr PT (9.0-12.0) sec INR (<1.2) APTT (22.0-30.0) sec D-Dimer (<0.60) mg/L FEU POC Glucose (mg/dL) 237 H (75-99) mg/dL Plasma Lactic Acid Louis 2.1 H* (0.7-2.0) mmol/L Ferritin (22.0-322.0) ng/mL Lactate Dehydrogenase (313-618) U/L Troponin I (0.000-0.034) ng/mL Microbiology - Last 24 Hours (Table) 12/29/20 11:39 Urine Culture - Preliminary Urine,Voided Assessment and Plan Plan: -Acute hypoxic respiratory failure: Secondary to covid 19. Patient will be started on Decadron Zinc, multivitamins. -Possible stroke involving the left side of the body: Patient had CT of the head without contrast ,patient also had a CT angios the head and neck, his creatinine is high and is 1.8. -Severe sepsis with lactic acidosis: Secondary to Covid 19 improvement with IV fluids patient will be given a dose of Lasix and will recheck the lactic acid tomorrow morning. Patient is in heart failure at this time -Congestive heart failure probably acute systolic dysfunction from acute myocardial infarction echocardiogram is pending -Acute non-ST elevation myocardial infarction: Patient is on IV heparin which will be discontinued as per recommendation from neurology as patient has an occipital stroke and patient is high risk for post stroke hemorrhage patient is receiving rectal aspirin at this time -Atrial fibrillation: Rapid ventricular rate secondary to hypoxemia, patient was started on Cardizem . -Cervical degenerative disc disease -Hypertension -Possibility of vascular dementia mild to moderate -Toxic encephalopathy from sepsis -Acute renal failure: Prerenal azotemia or acute tubular necrosis secondary to sepsis. Anion gap metabolic acidosis secondary to lactic acidosis -DVT prophylaxis patient is already on IV heparin for atrial fibrillation and non-ST elevation [place]
[2020-12-30] MEDS ORDERED: DRY MOUTH SPRAY 44.3 SPRAY/44.3 ML SPRAY MUCOUS MEM PRN (15:15)
[2020-12-30] MEDS ORDERED: MORPHINE SULFATE 2 MG/ML SYRINGE IV PRN (15:15)
[2020-12-30] MEDS ORDERED: ACETAMINOPHEN SUPPOSITORY 650 MG SUPP RECTAL PRN (15:15)
[2020-12-30] MEDS ORDERED: SCOPOLAMINE 1.5MG/72HR PATCH TRANSDERM SCH (15:15)
[2020-12-30] MEDS ORDERED: ARTIFICIAL TEARS-HYPROMELLOSE DROPS 15 ML BTL BOTH EYES PRN (15:15)
[2020-12-30] MEDS ORDERED: ATROPINE OPHTH SOLN 1% 5ML BTL SUBLINGUAL PRN (15:15)
[2020-12-30] MEDS ORDERED: LORazepam 2 MG/ML INJ IV PRN (15:15)
--- NOTE | 2020-12-30 15:15 | CT ---
EXAMINATION TYPE: CODE STROKE: CTA head neck DATE OF EXAM: 12/30/2020 COMPARISON: None HISTORY: Altered mental status. CT DLP: 933.3 mGycm Automated exposure control for dose reduction was used. CONTRAST: Performed with IV Contrast, patient injected with 65ml mL of Isovue 370. Images obtained from the aortic arch to the vertex of the brain with IV contrast. There are 3-D post processed images. There is patchy infiltrate in the visualized lung nettles with airspace consolidation. There are a few mediastinal lymph nodes that measure up to almost 15 mm. There is atheromatous change in the thoraci c aorta. There is arterial flow in the subclavian arteries bilaterally. There is arterial flow in the common internal and external carotid arteries bilaterally. There is significant plaque formation at the left carotid artery bifurcation. There is estimated 75% stenosis of the proximal left internal ca rotid artery. There is estimated less than 20% stenosis proximal right internal carotid artery. There is arterial flow in both vertebral arteries. There is no evidence of carotid or vertebral artery ane urysm or dissection. There is multilevel moderate cervical spondylotic changes with some narrowing of the spinal canal at C4-5 and C5-6. There is moderate C4-5 bony spinal stenosis. Canal measures less than 6 mm. There is arterial flow in the anterior middle and posterior cerebral arteries. I see no evidence of i ntracranial aneurysm or neovascularity. There is no mass effect. There is fusiform narrowing of the p roximal left anterior cerebral artery. This could be hemodynamically significant. There is normal enh ancement of the venous sinuses. There is 2 cm calcified sebaceous cyst right parietal bone. IMPRESSION: Atherosclerotic vascular disease with approximate 75% stenosis at the proximal left internal carotid artery. Approximate 20% stenosis proximal right internal carotid artery. Fusiform stenosis proximal left anterior cerebral artery.
[2020-12-30] MEDS ORDERED: MORPHINE SULFATE (100 MG/2 ML) 100 MG in SODIUM CHLORIDE 0.9% 100 ML IV SCH (15:30)
[2020-12-30 17:39] LABS: Glucose,Whole Blood 203 mg/dL (75-99)
[2020-12-30 18:28] VITALS: PULSE 111
[2020-12-30] MEDS ORDERED: ATORVASTATIN 40 MG TAB PO SCH (21:00)
[2020-12-30] MEDS ORDERED: INSULIN ASPART (NovoLOG) 100 UNIT/ML VIAL SQ SCH (22:47)
[2020-12-31 01:44] VITALS: RESP 24
[2020-12-31] MEDS ORDERED: ASPIRIN 81 MG PO SCH (09:00)
--- NOTE | 2020-12-31 13:09 | P.DS ---
Providers Date of admission: 12/29/20 12:25 Attending physician: Teresa Michel Primary care physician: Eri Stewart DO Hospital Course: Patient was made comfort care yesterday after discussing with family patient experienced earlier today morning please refer to nursing documentation for exact time of . For rest of the details please refer to my progress note from yesterday. Patient Condition at Discharge: Serious Plan - Discharge Summary Discharge Rx Participant: No New Discharge Prescriptions: No Action Tiotropium 2.5 Mcg/Puff [Spiriva Respimat 2.5 Mcg] 2 puff INHALATION RT-DAILY Metoprolol Tartrate [Lopressor] 25 mg PO BID Fluticasone Propionate [Flovent Hfa 220 mcg] 2 puff INHALATION RT-BID Tamsulosin HCl [Flomax] 0.4 mg PO HS Fluticasone Nasal [place] [Flonase Nasal [place]] 1 spray EA NOSTRIL DAILY Docusate [Colace] 100 mg PO DAILY PRN PRN Reason: Constipation Fluticasone Furoate [Arnuity Ellipta] 1 puff INHALATION RT-DAILY Aspirin [Children's Aspirin] 81 mg PO DAILY Ascorbic Acid [Vitamin C] 500 mg PO DAILY traZODone HCL 100 mg PO HS traMADol HCL 50 mg PO BID PRN PRN Reason: Pain predniSONE [Deltasone] 20 mg PO DAILY polyethylene glycoL 3350 [Miralax] 17 gm PO DAILY PRN PRN Reason: Constipation Omeprazole 20 mg PO DAILY Insulin Detemir [Levemir Flextouch] 10 units SQ DAILY Insulin Aspart See Protocol SQ ACHS Benzocaine/Menthol [Cepacol Sore Throat Lozenge] 1 lozenge BUCCAL DAILY PRN PRN Reason: Sore Throat HYDROcodone/APAP 5-325MG [[place] 5-325] 1 tab PO Q6H PRN PRN Reason: Pain Cholecalciferol [Vitamin D3 (25 Mcg = 1000 Iu)] 25 mcg PO DAILY Albuterol Nebulized [Ventolin Nebulized] 2.5 mg INHALATION RT-Q8H PRN PRN Reason: Shortness Of Breath Apixaban [Eliquis] 2.5 mg PO BID Acetaminophen [Tylenol] 650 mg PO Q4H PRN PRN Reason: Pain Discharge Medication List Acetaminophen [Tylenol] 650 mg PO Q4H PRN 12/29/20 [History] Albuterol Nebulized [Ventolin Nebulized] 2.5 mg INHALATION RT-Q8H PRN 12/29/20 [History] Apixaban [Eliquis] 2.5 mg PO BID 12/29/20 [History] Ascorbic Acid [Vitamin C] 500 mg PO DAILY 12/29/20 [History] Aspirin [Children's Aspirin] 81 mg PO DAILY 12/29/20 [History] Benzocaine/Menthol [Cepacol Sore Throat Lozenge] 1 lozenge BUCCAL DAILY PRN 12/29/20 [History] Cholecalciferol [Vitamin D3 (25 Mcg = 1000 Iu)] 25 mcg PO DAILY 12/29/20 [History] Docusate [Colace] 100 mg PO DAILY PRN 12/29/20 [History] Fluticasone Furoate [Arnuity Ellipta] 1 puff INHALATION RT-DAILY 12/29/20 [Hi story] Fluticasone Nasal [place] [Flonase Nasal [place]] 1 spray EA NOSTRIL DAILY 12/29/20 [History] Fluticasone Propionate [Flovent Hfa 220 mcg] 2 puff INHALATION RT-BID 12/29/20 [History] HYDROcodone/APAP 5-325MG [[place] 5-325] 1 tab PO Q6H PRN 12/29/20 [History] Insulin Aspart See Protocol SQ ACHS 12/29/20 [History] Insulin Detemir [Levemir Flextouch] 10 units SQ DAILY 12/29/20 [History] Metoprolol Tartrate [Lopressor] 25 mg PO BID 12/29/20 [History] Omeprazole 20 mg PO DAILY 12/29/20 [History] Tamsulosin HCl [Flomax] 0.4 mg PO HS 12/29/20 [History] Tiotropium 2.5 Mcg/Puff [Spiriva Respimat 2.5 Mcg] 2 puff INHALATION RT-DAILY 12/29/20 [History] polyethylene glycoL 3350 [Miralax] 17 gm PO DAILY PRN 12/29/20 [History] predniSONE [Deltasone] 20 mg PO DAILY 12/29/20 [History] traMADol HCL 50 mg PO BID PRN 12/29/20 [History] traZODone HCL 100 mg PO HS 12/29/20 [History] Follow up Appointment(s)/Referral(s): None,Stated [REFERRING] - 1-2 days Discharge Disposition: - Preliminary Cause of Preliminary Cause of : Covid 19, acute myocardial infarction, acute stroke
--- NOTE | 2021-01-14 07:51 | CDI ---
Documentation Clarification Form Date: 01/14/2021 07:16:27 AM From: Edelmira DUNAWAY,CCDS,RN Phone: [phone] Admit Date: 12/29/2020 12:25:00 PM Patient Name: Juan Carlos Townsend Visit Number: [id number] Discharge Date: 12/31/2020 05:03:00 AM ATTENTION: The Clinical Documentation Specialists (CDI) and [facility] Coding Staff appreciate your assistance in clarifying documentation. Please respond to the clarification below the line at the bottom and electronically sign. The CDI & [facility] Coding staff will review the response and follow-up if needed. Please note: Queries are made part of the Legal Health Record. If you have any questions, please contact the author of this message via ITS. Dr. Teresa Michel Toxic Encephalopathy from sepsis is documented in 12/29 H&P and Encephalopathy due to multifactorial. Acute Hypoxia from COVID 19 pneumonia, also component of metabolic encephalopathy with kidney insufficiency as well as elevated liver function test noted in Neurology Consult noted of 12/30. Additional clarification regarding the type(s) of encephalopathy is requested. History/Risk Factors: 12/29 HP 85 yo sent in for sob. Recently hospitalized for COVID 19. PMH of liver cancer s/p surgical intervention. 12/30 Neurology PMH of A fib and HTN, Clinical Indicators: HP 12/30 Admitted with Severe sepsis with lactic acidosis 2 nd to COVID 19, acute renal failure. 12/30 Neurology The patient was found to have positive Covid 19.Per the patient nurse the patient would have episodes where he'll grind his teeth and during these episodes he has hypoxic episodes last about 10-15 seconds. Right hemiplegia is likely due to acute ischemic encephalopathy due to multifactorial: Acute hypoxia from COVID19 pneumonia, also component of metabolic encephalopathy with kidney insufficiency as well as elevated liver function test. Acute hypoxic respiratory failure due to Covid 19 pneumonia Non-STEMI , Atrial fibrillation on anticoagulation with Eliquis Acute kidney injury. VS 86 % on 4L to 90 on 10 L on 12/29 Labs: 12/29 Wbcs 16.8 to 12/30 14.4 Alk Phos 12/29 173 K 12/30 5.4 glucose 302 Cr 12/29 of 1.80 to 2.08 on 12/30 BUN 12/29 of 42 to 44 on 12/30 Lactic Acid 12/29 3.9 to 2.1 on 12/30 CT12/30: cerebral atrophy there is evidence for acute infarct left occipital lobe Treatment: Ativan 1mg IV stat on 12/29 and 12/30. . Ativan 0.5 mg IVP Q 4hrs prn anxiety Decadron 6mg IVP stated 12/30, 1L NS bolus on 12/29 then @ 130 cc hr. 12/29 11:45 to 12/30 @ 02:15 then @75 cc hr. Supplemental O2, comfort measures Consults: Neurology noting multifactorial encephalopathy Please clarify the type(s) of encephalopathy, if known: [ ] Anoxic Encephalopathy, Metabolic Encephalopathy and Toxic Encephalopathy due to sepsis [ ] Metabolic Encephalopathy & Toxic Encephalopathy due to sepsis [ ] Septic Encephalopathy [ ] Toxic Encephalopathy due to sepsis [ ] Other, please specify [ ] Unable to determine (Template Last Revised: November 2020) Anoxic Encephalopathy, Metabolic Encephalopathy and Toxic Encephalopathy due to sepsis MTDD
== END 2020-12-31 05:03 | disposition expired | DRG 871 ==
LOC: EC 09:12 → 3SCARD 12:25
PROVIDERS: ADMIT Internal Medicine; ATTEND Internal Medicine
PROC: 5A0935A Assistance with Respiratory Ventilation, Less than 24 Consecutive Hours, High Flow/Velocity Cannula (ICD-10-PCS; principal; 2020-12-29)
DX: A41.89 Other specified sepsis (principal); U07.1 COVID-19; N17.0 Acute kidney failure with tubular necrosis; J96.01 Acute respiratory failure with hypoxia; G92 Toxic encephalopathy; I21.4 Non-ST elevation (NSTEMI) myocardial infarction; J12.82 Pneumonia due to coronavirus disease 2019; I63.9 Cerebral infarction, unspecified; G93.41 Metabolic encephalopathy; G93.1 Anoxic brain damage, not elsewhere classified; E87.2 Acidosis; G81.91 Hemiplegia, unspecified affecting right dominant side; Z51.5 Encounter for palliative care; Z66 Do not resuscitate; R65.20 Severe sepsis without septic shock; Z79.01 Long term (current) use of anticoagulants; Z79.82 Long term (current) use of aspirin; Z79.51 Long term (current) use of inhaled steroids; Z79.4 Long term (current) use of insulin; Z79.52 Long term (current) use of systemic steroids; I48.0 Paroxysmal atrial fibrillation; Z85.05 Personal history of malignant neoplasm of liver; M50.30 Other cervical disc degeneration, unspecified cervical region; D72.810 Lymphocytopenia; I50.9 Heart failure, unspecified; I11.0 Hypertensive heart disease with heart failure; M48.02 Spinal stenosis, cervical region; G31.9 Degenerative disease of nervous system, unspecified; F01.50 Vascular dementia, unspecified severity, without behavioral disturbance, psychotic disturbance, mood disturbance, and anxiety
CPT/HCPCS: 36415; 70450; 70496; 70498; 71045; 72125; 72170; 80048; 80053; 81001; 82728; 83605; 83615; 83690; 83735; 83880; 84484; 85025; 85379; 85610; 85652; 85730; 86140; 87077; 87086; 87186; 93005; 94760; 96361; 96365; 96374; 96375; 96376; 99285